=== PATIENT | female | born 1990 | race African-American/Black ===

== ENCOUNTER 2019-03-02 16:00 | Emergency (ER) | payer OTHER ==
[~2019-03-02] VITALS: Ht 157.5 cm; Wt 50.8 kg
[2019-03-02 17:00] LABS: URINE BLOOD NEGATIVE (Negative); URINE CLARITY CLEAR; URINE COLOR YELLOW; URINE GLUCOSE-RANDOM NEGATIVE (Negative); URINE KETONES 1+ (Negative); URINE LEUKOCYTES-REFLEX NEGATIVE (Negative); URINE NITRITE-REFLEX NEGATIVE (Negative); URINE PROTEIN TRACE (Negative); URINE SPECIFIC GRAVITY >= 1.030 (1.005-1.030); URINE UROBILINOGEN 0.2 E.U./dl (0.2-1.0)
[2019-03-02 17:01] LABS: ICTOTEST (BILI CONFIRMATORY) Negative (Negative); URINE BILIRUBIN 1+ (Negative)
[2019-03-02 17:10] LABS: INFLUENZA A ANTIGEN Negative (Negative); INFLUENZA B ANTIGEN Negative (Negative)
[2019-03-02] MEDS ORDERED: TESSALON PERLE100 MG PO (17:41)
[2019-03-02] MEDS ORDERED: AUGMENTIN 875-1 EACH PO (17:41)
[2019-03-02] MEDS ORDERED: TRAMADOL 50 MG50 MG PO (17:41)
[2019-03-02 18:05] VITALS: BP 138/92
== END 2019-03-02 18:06 | disposition home or self-care (01) ==
LOC: M.ERS 16:00
PROVIDERS: Nurse Practitioner Family
DX: J32.1 Chronic frontal sinusitis (principal); F17.200 Nicotine dependence, unspecified, uncomplicated